=== PATIENT | male | born 1970 | race Caucasian/White ===

== ENCOUNTER 2019-09-12 15:02 | Emergency (ER) | payer BC, OTHER ==
[~2019-09-12] VITALS: Ht 190.5 cm; Wt 120.2 kg
[2019-09-12 15:02] VITALS: BP_SYST 155
[~2019-09-12 15:02] MED LIST: DICL75TA5 PO; DIPH-179 PO; PRED10TA PO; PRO AIR; ZOLP5TAB7 PO
[2019-09-12 16:05] VITALS: BP_SYST 135
== END 2019-09-12 16:05 | disposition home or self-care (01) ==
LOC: SED 15:02
DX: T15.91XA Foreign body on external eye, part unspecified, right eye, initial encounter (principal); I10 Essential (primary) hypertension; J45.909 Unspecified asthma, uncomplicated; Z79.899 Other long term (current) drug therapy; Z88.2 Allergy status to sulfonamides; Z91.011 Allergy to milk products; Z88.1 Allergy status to other antibiotic agents; X58.XXXA Exposure to other specified factors, initial encounter; Y93.89 Activity, other specified; Y92.89 Other specified places as the place of occurrence of the external cause; Y99.8 Other external cause status
CPT/HCPCS: 99283